=== PATIENT | male | born 1990 | race Two or more races ===

== ENCOUNTER 2023-12-03 07:30 | Emergency (ER) | payer OTHER ==
[~2023-12-03] VITALS: Ht 167.6 cm; Wt 76.2 kg
[~2023-12-03 07:30] MED LIST: IBUPROFEN800 MG PO
[2023-12-03] MEDS ORDERED: COZAAR50 MG PO (07:57)
== END 2023-12-03 10:12 | disposition home or self-care (01) ==
LOC: ER 07:30
DX: B86 Scabies (principal); R21 Rash and other nonspecific skin eruption